=== PATIENT | male | born 1970 | race Caucasian/White ===

== ENCOUNTER 2023-10-26 10:08 | Emergency (ER) | payer SELFPAY ==
[2023-10-26 10:10] VITALS: BP 109/71
--- NOTE | 2023-10-26 11:42 | ED.GENMED ---
History of Present Illness
General
Chief Complaint: Psychiatric Problem
Source: patient
Exam Limitations: none
Time Seen by Provider: 10/26/23 11:18
Nursing documentation reviewed up to this point in time: agreed with
Travel History
Have you had any contact with someone who has COVID-19?: No
Do you have any symptoms of coronavirus? Fever > 100 degrees, chills, cough, shortness of breath, sore throat, loss of taste or smell, muscle aches, or headache?: No
History of Present Illness
History of Present Illness:
53-year-old male presents for medical clearance for psychiatric evaluation
Has been feeling angry, acting out due to issues related to his personal professional life living with his parents due to financial issues no longer working he is not never been no children no drugs or alcohol has been using
melatonin to help with sleep
Denies any history of mental illness although he has been seen in the ER previously with similar complaints, no hallucinations, no suicidal or homicidal thoughts
Past History
Past History
ED Past Medical History: Psychiatric
ED Past Surgical History: None
Social History
Tobacco: Non-smoker
Alcohol: None
Drug: None
Personal: Single
Living: with family
Employment: Not employed
Review of Systems
Review of Systems
All Other Systems: Not applicable
Constitutional: Reports sleep disturbance
Cardiac: Reports no symptoms
ABD/GI: Reports no symptoms
: Reports no symptoms
Psychiatric: Reports depression and anxiety; Denies suicidal or hallucinations
Phy Exam
Physical Exam
Physical Exam:
Physical Exam
General: no apparent distress, not acutely ill
Neck: No jaundice
Heart: Regular
Lungs: no acute respiratory distress.
Neuro: alert and oriented. no focal neurological deficits
Skin: no rash
Psychiatric: Tangential, speech mildly pressured is cooperative not homicidal or suicidal
Extremities: no edema.
Course
Orders/Labs/Results
Orders:
Orders
10/26/23 11:36
Crisis Consult Routine
Reason for Consult: ANGRY
10/26/23 11:41
Acetaminophen Urgent
Alcohol Urgent
Complete Blood Count/With Diff Urgent
Comprehensive Metabolic Panel Urgent
Salicylate Urgent
Abnormal Lab Results
10/26/23
11:41
RBC 4.66 L 10^6/uL
(4.70-6.10)
Lymphocytes % 15.3 L %
(20.5-51.1)
BUN 25 H mg/dl
(9-20)
Salicylates < 1.0 L mg/dl
(2.0-20.0)
Acetaminophen < 10 L ug/ml
(10-30)
10/26/23 11:41
10/26/23 11:41
Vital Signs
Initial and Last Documented VS:
Initial Vital Signs
Temp Pulse Resp BP Pulse Ox
98.2 F 70 18 109/71 98
10/26/23 10:10 10/26/23 10:10 10/26/23 10:10 10/26/23 10:10 10/26/23 10:10
Last Documented Vital Signs
Temp Pulse Resp BP Pulse Ox
98.2 F 70 18 109/71 98
10/26/23 10:10 10/26/23 10:10 10/26/23 10:10 10/26/23 10:10 10/26/23 10:10
MDM/Problems Addressed
Differential Diagnosis Includes:
Anxiety depression doubt significant overdose
MDM/Problems Addressed:
Anxiety
Chronic conditions affecting care:
Anxiety
Chronic conditions affecting care: Psychiatric illness
Acute Exacerbation and/or Progression of Chronic Illness:
Anxiety
Acute Exacerbation and/or Progression of Chronic Illness: Psychiatric illness
*Critical Care Note
Total Time (30-74mins, 75-104mins- exclusive of procedures): Not Applicable
Update Note
Update Note:
12:35 PM labs are noted patient is stable for discharge/evaluation by [facility]
ED Attending Note
-
Portions of this chart may have been created with voice recognition software.� Occasional wrong word or��sound alike� substitutions may have occurred due to the inherent limitations of voice recognition software.
Discharge Plan
Departure
Patient Disposition: [facility]
Date of Disposition: 10/26/23
Time of Disposition: 12:35
Condition: Good
Discharge Problem:
Anxiety
Instructions: Generalized Anxiety Disorder (DC)
Prescriptions:
No Action
tramadol-acetaminophen 37.5 MG/325 MG tablet
1 tab PO Q6HPRN PRN (Reason: pain) Qty: 15 0RF
diazepam 5 MG tablet
5 mg PO TIDPRN PRN (Reason: muscle spasms) Qty: 15 0RF
hydroxyzine pamoate [Vistaril] 25 MG capsule
25 - 50 mg PO HS PRN (Reason: insomnia/anxiety) Qty: 25 0RF
escitalopram oxalate 5 MG tablet
5 mg PO DAILY Qty: 30 3RF
Discharge Date and Time
Print Language: KYRGYZ
[2023-10-26 11:50] LABS: % Basophils 0.6 % (0-2); % Eosinophils 1.9 % (0-6); % Immature Granulocytes 0.2 % (0-0.5); % Lymphocytes 15.3 % (20.5-51.1); % Monocytes 6.9 % (1.7-9.3); % Neutrophils 75.1 % (42.2-75.2); Absolute Basophils 0.1 10^3/uL (0-0.2); Absolute Eosinophils 0.2 10^3/uL (0-0.7); Absolute Lymphocytes 1.3 10^3/uL (1.2-3.4); Absolute Monocytes 0.6 10^3/uL (0.1-0.6); Absolute Neutrophils 6.2 10^3/uL (1.4-6.5); Hematocrit 39.8 % (39.0-52.0); Hemoglobin 13.6 g/dL (13.0-18.0); Mean Corp Hgb Conc. 34.2 g/dL (33.0-37.0); Mean Corpuscular Hgb 29.2 pg (27.0-31.0); Mean Corpuscular Volume 85.4 fL (80.0-94.0); Mean Platelet Volume 9.4 fL (7.4-10.4); Nucleated Red Blood Cells % 0 % (-); Platelet Count 252 10^3/uL (130-400); Red Blood Cell Count 4.66 10^6/uL (4.70-6.10); Red Cell Dist. Width 12.7 % (11.5-14.5); White Blood Cell Count 8.2 10^3/uL (4.8-10.8)
[2023-10-26 12:21] LABS: ALT (SGPT) 24 U/L (0-50); AST (SGOT) 32 U/L (17-59); Acetaminophen < 10 ug/ml (10-30); Albumin 4.3 g/dl (3.5-5.0); Alcohol None Detected; Alkaline Phosphatase 67 U/L (38-126); Blood Urea Nitrogen 25 mg/dl (9-20); Calcium 9.3 mg/dl (8.4-10.2); Carbon Dioxide 29 mmol/L (22-30); Chloride 103 mmol/L (98-107); Glucose 86 mg/dl (70-99); Potassium 4.7 mmol/L (3.5-5.1); Salicylate < 1.0 mg/dl (2.0-20.0); Sodium 135 mmol/L (135-145); Total Bilirubin 0.5 mg/dl (0.2-1.3); Total Protein 6.9 g/dl (6.3-8.2); eGFR > 60.00
== END 2023-10-26 14:22 ==
LOC: EMR 10:08
PROVIDERS: EMERGENCY PHYSICIAN Emergency Medicine; FAMILY PHYSICIAN Family Medicine
DX: F41.9 Anxiety disorder, unspecified (principal); F32.A Depression, unspecified; Z02.79 Encounter for issue of other medical certificate; G47.9 Sleep disorder, unspecified
CPT/HCPCS: 99283; 80053; 80143; 80179; 82077; 85025

== ENCOUNTER 2023-10-27 12:28 | Emergency (ER) | payer SELFPAY ==
[2023-10-27 12:31] VITALS: BP 124/85
--- NOTE | 2023-10-27 13:08 | ED.GENMED ---
History of Present Illness
General
Chief Complaint: Crisis Evaluation
Source: patient
Exam Limitations: none
Time Seen by Provider: 10/27/23 12:50
Nursing documentation reviewed up to this point in time: agreed with
Travel History
Have you had any contact with someone who has COVID-19?: No
Do you have any symptoms of coronavirus? Fever > 100 degrees, chills, cough, shortness of breath, sore throat, loss of taste or smell, muscle aches, or headache?: No
History of Present Illness
History of Present Illness:
53-year-old male with past medical history of anxiety and depression who presents to the emergency department for evaluation of 'anxiety.' Patient tells me that he has made 'poor life choices' and that he has had a steady increase in anxiety over
the course of years. He says that his symptoms seem to be reaching a peak recently although he cannot identify any particular trigger. According to crisis staff he has been seen at [facility] multiple times for similar symptoms over the past few
weeks. He was seen in this emergency room yesterday with similar symptoms and was referred over to our crisis center. It sounds like he will have bouts of anger and agitation at home associated with severe anxiety. His current plan is for intake
at the [facility] through [facility] on Saturday (3 days from now) but he was hoping for some medication to help him with his symptoms while awaiting treatment there. He denies any physical complaints. He denies any suicidal or homicidal ideation. He
currently takes no medications�review of his chart shows that he was previously on escitalopram but he says that he no longer has a doctor or insurance and does not take anything at present. He denies any drug or alcohol use.
Past History
Past History
ED Past Medical History: Psychiatric
ED Past Surgical History: None
Social History
Tobacco: Non-smoker
Alcohol: None
Drug: None
Personal: Single
Living: with family
Employment: Not employed
Review of Systems
Review of Systems
All Other Systems: ROS reviewed and negative except as documented in HPI and ROS
Constitutional: Denies fever
Respiratory: Denies trouble breathing
Cardiac: Denies chest pain
ABD/GI: Denies abdominal pain or vomiting
: Denies flank pain
Musculoskeletal: Denies neck pain or back pain
Neurological: Denies headache
Psychiatric: Reports anxiety; Denies suicidal or hallucinations
Phy Exam
Physical Exam
Physical Exam:
General: Awake, alert, pacing around the room and does appear to be anxious
Head: Normocephalic, atraumatic
Eyes: Conjunctiva normal, pupils equal round and reactive to light bilateral
Throat: Airway intact, handling secretions
Neck: Trachea midline, supple without meningismus
Lungs: Clear to auscultation bilaterally, no wheezing, rales, rhonchi
Heart: Regular rate and rhythm, no murmurs, gallops, or rubs
Neuro: Cranial nerves grossly intact, speech fluid, no gross motor or sensory deficit
Skin: No signs of trauma
Extremities: Atraumatic, good pulses, warm well-perfused
Psych: Reasonable insight and judgment and is forward thinking/future focus
Scores
Heart Failure Risk
Heart Failure Risk Score: Not Applicable
Heart Score for Chest Pain Patients
STEMI patient?: Not applicable
Withdrawal Assessment of Alcohol
Withdrawal Assessment Completed?: Not applicable
Course
Orders/Labs/Results
Orders:
Orders
10/27/23 13:03
Lorazepam [Ativan] 0.5 mg PO NOW STA
10/27/23 13:04
Case Management Consult ONCE
Case Management Consult: Other
Comment: no insurance, can't afford medicine
Vital Signs
Initial and Last Documented VS:
Initial Vital Signs
Temp Pulse Resp BP Pulse Ox
36.7 C 85 18 124/85 97
10/27/23 12:31 10/27/23 12:31 10/27/23 12:31 10/27/23 12:31 10/27/23 12:31
Last Documented Vital Signs
Temp Pulse Resp BP Pulse Ox
36.7 C 85 18 124/85 97
10/27/23 12:31 10/27/23 12:31 10/27/23 12:31 10/27/23 12:31 10/27/23 12:31
MDM/Problems Addressed
Differential Diagnosis Includes:
Anxiety
MDM/Problems Addressed:
53-year-old male presents for progressive anxiety which has been increasing recently without clear trigger. Seen at [facility] multiple times and seen in this emergency room yesterday. Currently takes no medicines for anxiety. Planning to go for a
treatment at the [facility] on Saturday but hoping for medication to get him through until that point. Denies drug or alcohol use. Vital signs normal, exam as above. No clear indication for any emergent testing�he has no acute complaints today aside
from his anxiety. Will plan to start on SSRI once again�previously was on escitalopram and will resume this. Will provide a few tabs of Ativan to take as needed for the next few days while awaiting intake at the [facility]. He did express concerns
about lack of insurance and ability to afford his medications�case management contacted to help with this. Patient was already assessed in our crisis center today will discharge with outpatient follow-up plan in place.
Chronic conditions affecting care:
Anxiety/depression
Comment
Comment:
*Pulse Oximetry
Patient hypoxic: no
*Critical Care Note
Total Time (30-74mins, 75-104mins- exclusive of procedures): Not Applicable
Data Reviewed
Source: patient and records
Further Testing Considered But Not Given:
Considered repeat blood work but patient had full set of lab work yesterday and has no physical complaints�no indication for emergent repeat testing
Patient Management
Discussion with other providers: Other (Discussed at length with our crisis workers, discussed with her casework supervisor)
ED Attending Note
-
Portions of this chart may have been created with voice recognition software.� Occasional wrong word or��sound alike� substitutions may have occurred due to the inherent limitations of voice recognition software.
Discharge Plan
Departure
Patient Disposition: Home (Routine Discharge)
Date of Disposition: 10/27/23
Time of Disposition: 13:24
Patient with high blood pressure during this ER visit?: No
Discharge Problem:
Anxiety
Instructions: Anxiety, Adult (DC)
Prescriptions:
New
escitalopram oxalate 5 mg tablet
5 mg PO DAILY Qty: 30 0RF
lorazepam [Ativan] 0.5 mg tablet
0.5 mg PO BID PRN (Reason: anxiety) Qty: 5 0RF
No Action
tramadol-acetaminophen 37.5 MG/325 MG tablet
1 tab PO Q6HPRN PRN (Reason: pain) Qty: 15 0RF
diazepam 5 MG tablet
5 mg PO TIDPRN PRN (Reason: muscle spasms) Qty: 15 0RF
hydroxyzine pamoate [Vistaril] 25 MG capsule
25 - 50 mg PO HS PRN (Reason: insomnia/anxiety) Qty: 25 0RF
escitalopram oxalate 5 MG tablet
5 mg PO DAILY Qty: 30 3RF
Referrals:
Gaetano Shepherd MD [Family Provider] - Follow up in 2-3 days
Activity Restrictions/Additional Instructions:
Thank you for visiting the Emergency Department at [facility].
1. Please schedule a follow up appointment as directed. Call first thing tomorrow morning to make an appointment.
2. If indicated, please take your medications as instructed and indicated on discharge paperwork.
3. If any of your symptoms do not improve, or persist, or become more severe within 6-12 hours, please return to the emergency department for further care.
4. Please return to the emergency department if you develop a headache, neck pain/stiffness, fever greater than 100.4F, chest pain, shortness of breath, persistent nausea, vomiting, slurred speech, difficulty walking, numbness/tingling, weakness,
signs of infection or any other symptoms that are worrisome to you.
Please call [phone] if you have any questions.
Interventions
Interventions:
*Risk Screen - Suicide Last Done: 10/27/23 12:50
*General Assessment Last Done: 10/27/23 12:31
*Neglect/Abuse Screening Last Done: 10/27/23 12:50
ED- Fall Risk Assessment Last Done: 10/27/23 12:50
*ED COVID-19 Vaccine History Last Done: 10/27/23 12:31
ED-Psychological Assessment Last Done: 10/27/23 12:50
Discharge Date and Time
Print Language: YORUBA
[2023-10-27] MEDS: ATIVAN 0.5 MG PO (13:14)
--- NOTE | 2023-10-27 13:20 | CM ---
CM was consulted due to patient's lack of insurance and inability to pay for medications. CM reviewed medical records. Patient was recently in ED for crisis eval and plan for admission to [facility] on Sunday 10/29. Patient was given good RX
coupons for Ativan and Lexapro. CM updated [facility] crisis with medication plan. [facility] is agreeable to plan.
CM updated ED physician.
== END 2023-10-27 15:54 | disposition home or self-care (01) ==
LOC: EMR 12:28
PROVIDERS: EMERGENCY PHYSICIAN Emergency Medicine; FAMILY PHYSICIAN Family Medicine
DX: F41.9 Anxiety disorder, unspecified (principal); F32.A Depression, unspecified; R45.1 Restlessness and agitation; Z59.7 Insufficient social insurance and welfare support
CPT/HCPCS: 99283